=== PATIENT | female | born 1950 | race Hispanic/Latino ===

== ENCOUNTER 2018-01-14 10:51 | Emergency (ER) | payer OTHER ==
[~2018-01-14] VITALS: Ht 160 cm; Wt 99.8 kg
[~2018-01-14 10:51] MED LIST: AMOXICILLIN500 M1 PO; BACTRIM DS 8001 TAB PO; CYMBALTA 30 MG30 MG PO; INVOKANA100 MG PO; LEVEMIR FLEX100 U/M1 SC; LEVSIN0.125 M1 PO; METFORMIN HCL1000 M1 PO; MOTRIN 600 MG600 MG PO; NEURONTIN300 MG PO; OMEPRAZOLE20 M2 PO; PERCOCET 325 MG1 TA2 PO; ZOFRAN4 M2 PO
[2018-01-14 12:19] LABS: ABSOLUTE BASOPHIL COUNT 0 /CUMM (0.0-0.2); ABSOLUTE EOSINOPHIL COUNT 0.1 /CUMM (0.0-0.7); ABSOLUTE GRANULOCYTE CT 8.4 /CUMM (1.4-6.5); ABSOLUTE LYMPH COUNT 1.6 /CUMM (1.2-3.4); ABSOLUTE MONOCYTE COUNT 0.5 /CUMM (0.10-0.60); BASOPHIL % 0.2 % (0.0-2.0); EOSINOPHIL % 0.5 % (0-5); GRANULOCYTE % 79.3 % (42.2-75.2); HEMATOCRIT 42.4 % (37-47); MEAN CORPUSCULAR HGB 30.1 PG (27.0-31.0); MEAN CORPUSCULAR HGB CONC 33.9 G/DL (33.0-37.0); MEAN CORPUSCULAR VOLUME 88.8 FL (81.0-99.0); PLATELET COUNT 341 /CUMM (130-400); RBC DISTRIBUTION WIDTH 13.5 % (11.5-14.5); RED BLOOD CELL CT 4.78 /CUMM (4.20-5.40); WHITE BLOOD CELL COUNT 10.5 /CUMM (4.8-10.8)
--- NOTE | 2018-01-14 13:44 | CT SCAN REPORT ---
EXAMINATION: CT HEAD WITHOUT CONTRAST CLINICAL INFORMATION: Headache. COMPARISON: None TECHNIQUE: Contiguous axial imaging was performed from the skull base to vertex without intravenous administration of contrast. DLP: 600.8 mGy-cm FINDINGS: There is no evidence of acute intracranial hemorrhage or territorial infarction. No abnormal mass effect or midline shift is seen. Allison to white matter differentiation is well preserved. No extra-axial fluid collections are identified. The ventricles are normal in size. Moderate chronic white matter microangiopathic changes are present. 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 The osseous structures and soft tissues are normal. The visualized portions of the paranasal sinuses are well aerated. There is a mild amount of fluid in the right mastoid air cells IMPRESSION: No acute intracranial pathology. Moderate chronic white matter microangiopathy.
[2018-01-14] MEDS ORDERED: BUTALB-ACETAMI1 EACH PO (16:39)
--- NOTE | 2018-01-14 16:43 | ED HEADACHE COMPLAINT ---
History of Present Illness General Chief Complaint: Headache Stated Complaint: ALONZO SINCE SATURDAY Source: patient, family, old records Exam Limitations: no limitations Vital Signs & Intake/Output Vital Signs & Intake/Output Vital Signs Date Time Temp Pulse Resp B/P B/P Pulse O2 O2 Flow FiO2 Mean Ox Delivery Rate 01/14 1648 99 18 177/81 99 01/14 1513 98.7 97 19 143/74 97 Room Air 01/14 1116 98.3 102 18 102/70 95 Room Air Allergies Coded Allergies: NO KNOWN ALLERGIES (06/12/15) Reconcile Medications Butalb/Acetaminophen/Caffeine (Pfxqem-Spkrftry-Nmtx 50-325-40) 50 MG-325 MG-40 MG TABLET 1 TAB PO Q6P PRN severe headache Canagliflozin (Invokana) 100 MG TAB 1 TAB PO DIABETES (Reported) Duloxetine Hydrochloride (Cymbalta) 30 MG CAP 1-2 CAP PO DAILY UNKNOWN ( Reported) Gabapentin (Neurontin) 300 MG CAP 1 CAP PO TID UNKNOWN (Reported) Hyoscyamine (Levsin) 0.125 MG TABLET 1 TAB PO Q4 ABDOMINAL SPASMS Insulin Detemir (Levemir Flextouch) 100 U/ML BERE 80 U SC DAILY DIABETES ( Reported) Insulin Detemir (Levemir Flextouch) 100 U/ML BERE 70 U SC QPM DIABETES ( Reported) Metformin HCl 1,000 MG TABLET 1 TAB PO BID DIABETES (Reported) Omeprazole 20 MG CAPSULE.DR 1 CAP PO DAILY GASTRITIS Ondansetron HCl (Zofran) 4 MG TABLET 1 TAB PO Q6-8P NAUSEA Triage Note: PT TO ED WITH C/O HEADACHE X 3 DAYS, WENT TO [facility] ON SATURDAY AND HAS HEADACHE AND NAUSEA SINCE THAT NIGHT, NO SOLID FOOD, JUST TAKING WATER. Triage Nurses Notes Reviewed? yes Onset: 4 days Duration: day(s):, constant, continues in ED Timing: recent history Quality/Severity: moderate, severe, pressure, throbbing Head Injury Location: frontal No Modifying Factors: none Associated Symptoms: nausea/vomiting LMP (ages 10-50): post menopausal : No Patient currently breastfeeds: No HPI: 4 days prior to admission patient complains of frontal headache described as moderate to severe throbbing nonradiating associated with nausea and anorexia photophobia. She denies fever chills vomiting diarrhea chest pain cough shortness of breath dysuria rash bleeding change in motor sensory function change in bowel bladder habit. Past History Travel History Traveled to [place] past 21 day No Medical History Any Pertinent Medical History? see below for history Musculoskeletal: DIABETIC NERVE PAIN Endocrine: IDDM Surgical History Surgical History: non-contributory Psychosocial History What is your primary language Upper Sorbian Tobacco Use: Never used ETOH Use: denies use Illicit Drug Use: denies illicit drug use Family History Hx Contributory? No Review of Systems Review of Systems Constitutional: Reports: no symptoms. Eyes: Reports: no symptoms. Ears, Nose, Throat, Mouth: Reports: no symptoms. Respiratory: Reports: no symptoms. Cardiovascular: Reports: no symptoms. Gastrointestinal/Abdominal: Reports: see HPI, nausea, vomiting (in ED). Genitourinary: Reports: no symptoms. Musculoskeletal: Reports: no symptoms. Skin: Reports: no symptoms. Neurological/Psychological: Reports: see HPI, headache. Hematologic/Endocrine: Reports: no symptoms. Endocrine: Reports: no symptoms. Immunologic/Allergic: Reports: no symptoms. All Other Systems: Reviewed and Negative Physical Exam Physical Exam General Appearance: well developed/nourished, alert, awake, anxious, severe distress, obese Head: atraumatic, normal appearance Eyes: Bilateral: normal appearance, PERRL, EOMI. Ears, Nose, Throat: normal pharynx, normal ENT inspection Neck: normal inspection, supple, full range of motion, trachea midline, no midline tenderness Respiratory: normal breath sounds, chest non-tender, no respiratory distress, quiet respiration, lungs clear Cardiovascular: regular rate/rhythm, normal peripheral pulses, norml femoral pulses equa Gastrointestinal: normal bowel sounds, soft, non-tender, no organomegaly Back: normal inspection, normal range of motion Extremities: normal inspection, normal capillary refill, normal range of motion, no edema Psychiatric: awake, alert, oriented x 3 Cranial Nerves: normal hearing, normal speech, PERRL Coordination/Gait: normal finger to nose, normal gait Motor/Sensory: no motor/sensory deficits Reflexes: 2+: bicep (R), bicep (L). Skin: intact, normal color, warm/dry Lymphatic: no anterior cervical jerardo Core Measures Sepsis Present: No Sepsis Focused Exam Completed? No Progress Differential Diagnosis: cluster ALONZO, migraine ALONZO, musculoskeletal pain, tension ALONZO Plan of Care: Orders Procedure Date/time Status EKG 01/14 1430 Active URINALYSIS 01/14 112 Complete TROPONIN LEVEL 01/14 112 Complete LIPASE 01/15 1120 Complete LACTIC ACID 01/15 1120 Complete COMPREHENSIVE METABOLIC PANEL 01/15 1120 Complete CBC WITHOUT DIFFERENTIAL 01/15 1120 Complete Laboratory Tests 01/14/18 1420: Lactic Acid Cancelled 01/14/18 1402: Urine Color YEL, Urine Clarity HAZY H, Urine pH 6.0, Ur Specific [place] 1.025, Urine Protein NEG, Urine Ketones >=80, Urine Nitrite POS H, Urine Bilirubin NEG , Urine Urobilinogen 0.2, Ur Leukocyte Esterase NEG, Ur Microscopic SEDIMENT EXAMINED, Urine WBC 1-3 H, Ur Epithelial Cells FEW, Urine Bacteria MANY H, Urine Hemoglobin NEG, Urine Glucose >=1000 H 01/14/18 1208: Anion Gap 16, Estimated GFR > 60, BUN/Creatinine Ratio 28.3 H, Glucose 231 H, Lactic Acid 1.1, Calcium 9.6, Total Bilirubin 0.7, AST 32, ALT 42, Alkaline Phosphatase 103, Troponin I < 0.01, Total Protein 7.6, Albumin 4.2, Globulin 3.4 , Albumin/Globulin Ratio 1.2, Lipase 79, CBC w Diff NO MAN DIFF REQ, RBC 4.78, MCV 88.8, MCH 30.1, MCHC 33.9, RDW 13.5, MPV 9.0, Gran % 79.3 H, Lymphocytes % 14.9 L, Monocytes % 5.1, Eosinophils % 0.5, Basophils % 0.2, Absolute Granulocytes 8.4 H, Absolute Lymphocytes 1.6, Absolute Monocytes 0.5, Absolute Eosinophils 0.1, Absolute Basophils 0 Departure Departure Time of Disposition: 1637 Disposition: HOME OR SELF CARE Condition: Stable Clinical Impression Primary Impression: Cluster headache syndrome Referrals: Karan FIGUEROA,Ralph Nina (PCP/Family) Departure Forms: Customer Survey General Discharge Information Prescriptions: Current Visit Scripts Butalb/Acetaminophen/Caffeine (Iztptz-Jggrfsey-Uogw 50-325-40) 1 TAB PO Q6P PRN severe headache #30 TAB
[2018-01-14 16:48] VITALS: BP 177/81
== END 2018-01-14 17:15 ==
LOC: ERH 10:51
PROVIDERS: Physician Assistant Medical
DX: G44.009 Cluster headache syndrome, unspecified, not intractable (principal)
CPT/HCPCS: 81001; 93005; 93010; 96374; 96375; J1885; J2765